=== PATIENT | male | born 1985 | race Caucasian/White ===

== ENCOUNTER 2016-07-29 18:40 | Emergency (ER) | payer OTHER ==
[2016-07-29 18:48] VITALS: BP 140/82; PULSE 100; TEMP 98.2; BMI 22.9
--- NOTE | 2016-07-29 19:16 | PDOC ---
History of Present Illness - General Chief Complaint: Shoulder Dislocation Stated Complaint: INJURY Time Seen by Provider: 07/29/16 19:06 History Source: Patient Exam Limitations: No Limitations - History of Present Illness Initial Comments: 07/29/16 19:28 30-year-old male who is right hand dominant presents to the emergency department complaining of a possible right shoulder dislocation after moving heavy furniture 3 hours ago. Patient states he's had previous right shoulder dislocations that will only reduce via conscious sedation. Patient denies any extremity numbness or tingling sensation. Pain is described as 10/10 sharp constant discomfort. Pain is exacerbated on movement and he has no alleviating factors. Occurred: reports: just prior to arrival Upper Extremity Pain Location: right: shoulder Method of Injury: reports: other (moving furniture) Past History - Past Medical History Allergies/Adverse Reactions: Allergies Allergy/AdvReac Type Severity Reaction Status Date / Time No Known Allergies Allergy Verified 07/29/16 18:48 Home Medications: Ambulatory Orders Ibuprofen [Motrin -] 600 mg PO TID #21 tablet 12/21/14 Oxycodone HCl/Acetaminophen [Percocet 5/325 -] 1 tab PO Q6H #14 tablet 12/21/14 Other medical history: NONE - Psycho/Social/Smoking Cessation Hx Anxiety: No Suicidal Ideation: No Smoking Status: No Smoking History: Never smoked Have you smoked in the past 12 months: No Number of Cigarettes Smoked Daily: 0 Hx Alcohol Use: Yes (SOCIAL) Drug/Substance Use Hx: No Substance Use Type: None Review of Systems - Review of Systems Musculoskeletal: Yes: Other (right shoulder pain) *Physical Exam - Vital Signs Last Vital Signs Temp Pulse Resp BP Pulse Ox 98.2 F 100 H 20 140/82 99 07/29/16 18:45 07/29/16 18:45 07/29/16 18:45 07/29/16 18:45 07/29/16 18:45 - Physical Exam Comments: 07/29/16 19:30 GENERAL: Well developed, well nourished. Awake and alert. No acute distress. HEENT: Normocephalic, atraumatic. PERRLA, EOMI. No conjunctival pallor. Sclera are non- icteric. Moist mucous membranes. Oropharynx is clear. NECK: Supple. Full ROM. No JVD. Carotid pulses 2+ and symmetric, without bruits. No thyromegaly. No lymphadenopathy. CARDIOVASCULAR: Regular rate and rhythm. No murmurs, rubs, or gallops. Distal pulses are 2+ and symmetric. PULMONARY: No evidence of respiratory distress. Lungs clear to auscultation bilaterally. No wheezing, rales or rhonchi. ABDOMINAL: Soft. Non-tender. Non-distended. No rebound or guarding. No organomegaly. Normoactive bowel sounds. MUSCULOSKELETAL Right shoulder: Deformity, pain on palpation/passive and active movement Post reduction of the right shoulder: Deltoid sensation intact, full range of motion Excluding right shoulder: Normal range of motion at all joints. No bony deformities or tenderness. No CVA tenderness. EXTREMITIES: No cyanosis. No clubbing. No edema. No calf tenderness. SKIN: Warm and dry. Normal capillary refill. No rashes. No jaundice. NEUROLOGICAL: Alert, awake, appropriate. Cranial nerves 2-12 intact. No deficits to light touch and temperature in face, upper extremities and lower extremities. No motor deficits in the in face, upper extremities and lower extremities. Normoreflexic in the upper and lower extremities. Normal speech. Toes are down- going bilaterally. Gait is normal without ataxia. PSYCHIATRIC: Cooperative. Good eye contact. Appropriate mood and affect. ED Treatment Course - RADIOLOGY Radiology Studies Ordered: Category Date Time Status SHOULDER-RIGHT [RAD] Stat Radiology 07/29/16 18:54 Taken SHOULDER-RIGHT [RAD] Stat Radiology 07/29/16 19:06 Taken Progress Note - Progress Note Progress Note: Right shoulder: xray taken of the right shoulder. He was only able to obtain AP view due to pain. Patient was placed on prone position in the x-ray department: Scapular manipulation Postreduction x-ray: 2 views: Negative fracture/successfully reduced *DC/Admit/Observation/Transfer Diagnosis at time of Disposition: Recurrent dislocation, right shoulder - Discharge Dispostion Disposition: HOME Condition at time of disposition: Stable Admit: No - Referrals Referrals: Obed Youssef [Primary Care Provider] - - Patient Instructions Printed Discharge Instructions: DI for Shoulder Dislocation Additional Instructions: Ice Rest Follow up with the orthopedics this week as scheduled Return to the ER for severe/persistent or worsening pain, extremity numbness/ tingling sensation
--- NOTE | 2016-07-29 19:20 | PDOC ---
*Physical Exam - Vital Signs Last Vital Signs Temp Pulse Resp BP Pulse Ox 98.2 F 100 H 20 140/82 99 07/29/16 18:45 07/29/16 18:45 07/29/16 18:45 07/29/16 18:45 07/29/16 18:45 Medical Decision Making - Medical Decision Making 07/29/16 19:20 Pt seen by the Advanced Practice Provider under my direct supervision Ancillary studies reviewed I agree with plan as outlined by the Advanced Practice Provider RENARD Degroot *DC/Admit/Observation/Transfer Diagnosis at time of Disposition: Recurrent dislocation, right shoulder - Discharge Dispostion Disposition: HOME Condition at time of disposition: Stable - Referrals Referrals: Obed Youssef [Primary Care Provider] - - Patient Instructions Printed Discharge Instructions: DI for Shoulder Dislocation Additional Instructions: Ice Rest Follow up with the orthopedics this week as scheduled Return to the ER for severe/persistent or worsening pain, extremity numbness/ tingling sensation - Post Discharge Activity
== END 2016-07-29 20:41 | disposition home or self-care (01) ==
LOC: JER 18:40
PROC: 0RSJXZZ Reposition Right Shoulder Joint, External Approach (ICD-10-PCS; principal; 2016-07-29)
DX: M24.411 Recurrent dislocation, right shoulder (principal); X50.0XXA Overexertion from strenuous movement or load, initial encounter; X50.9XXA Other and unspecified overexertion or strenuous movements or postures, initial encounter; Y93.E9 Activity, other interior property and clothing maintenance; Y92.038 Other place in apartment as the place of occurrence of the external cause; Y99.8 Other external cause status
CPT/HCPCS: 23650; 73030-TC-RT; 99281-25

== ENCOUNTER 2016-09-27 12:38 | Emergency (ER) | payer OTHER ==
[2016-09-27 12:47] VITALS: TEMP 98.6; BMI 51.2
--- NOTE | 2016-09-27 12:50 | PDOC ---
History of Present Illness - General Chief Complaint: Pain, Acute Stated Complaint: rt shoulder dislocation INJURY, PAIN Time Seen by Provider: 09/27/16 12:48 - History of Present Illness Initial Comments: 09/27/16 12:52 The patient is a 31 year old male with a significant past medical history of prior shoulder dislocation (R) who presents to the emergency department with R anterior shoulder dislocation. The patient denies chest pain, shortness of breath, headache and dizziness. Denies fever, chills, nausea, vomit, diarrhea and constipation. Denies dysuria, frequency, urgency and hematuria. Allergies: NKA Past surgical history: Denies Social history: Social ETOH 09/27/16 14:33 Past History - Past Medical History Allergies/Adverse Reactions: Allergies Allergy/AdvReac Type Severity Reaction Status Date / Time No Known Allergies Allergy Verified 09/27/16 12:43 Home Medications: Ambulatory Orders Ibuprofen [Motrin -] 600 mg PO TID #21 tablet 12/21/14 Oxycodone HCl/Acetaminophen [Percocet 5/325 -] 1 tab PO Q6H #14 tablet 12/21/14 Ibuprofen [Motrin -] 600 mg PO TID #42 tablet 09/27/16 Other medical history: hx of rt shoulder dislocation - Psycho/Social/Smoking Cessation Hx Anxiety: No Suicidal Ideation: No Smoking Status: No Smoking History: Never smoked Have you smoked in the past 12 months: No Number of Cigarettes Smoked Daily: 0 Information on smoking cessation initiated: No Hx Alcohol Use: No Drug/Substance Use Hx: No Substance Use Type: None Review of Systems - Review of Systems Comments:: 09/27/16 12:52 GENERAL/CONSTITUTIONAL: No fever or chills. No weakness. HEAD, EYES, EARS, NOSE AND THROAT: No change in vision. No ear pain or discharge. No sore throat. CARDIOVASCULAR: No chest pain or shortness of breath RESPIRATORY: No cough, wheezing, or hemoptysis. GASTROINTESTINAL: No nausea, vomiting, diarrhea or constipation. GENITOURINARY: No dysuria, frequency, or change in urination. MUSCULOSKELETAL: Reports Right shoulder pain due to dislocation. No neck or back pain. SKIN: No rash NEUROLOGIC: No headache, vertigo, loss of consciousness, or change in strength/ sensation. ENDOCRINE: No increased thirst. No abnormal weight change HEMATOLOGIC/LYMPHATIC: No anemia, easy bleeding, or history of blood clots. ALLERGIC/IMMUNOLOGIC: No hives or skin allergy. 09/27/16 14:34 *Physical Exam - Vital Signs Last Vital Signs Temp Pulse Resp BP Pulse Ox 98.6 F 98 H 18 138/83 100 09/27/16 12:45 09/27/16 12:45 09/27/16 12:45 09/27/16 12:45 09/27/16 12:45 - Physical Exam Comments: 09/27/16 12:52 GENERAL: Awake, alert, and fully oriented, in no acute distress HEAD: No signs of trauma, normocephalic, atraumatic EYES: PERRLA, EOMI, sclera anicteric, conjunctiva clear ENT: Auricles normal inspection, hearing grossly normal, nares patent, oropharynx clear without exudates. Moist mucosa NECK: Normal ROM, supple, no lymphadenopathy, JVD, or masses LUNGS: No distress, speaks full sentences, clear to auscultation bilaterally HEART: Regular rate and rhythm, normal S1 and S2, no murmurs, rubs or gallops, peripheral pulses normal and equal bilaterally. ABDOMEN: Soft, nontender, normoactive bowel sounds. No guarding, no rebound. No masses EXTREMITIES: +R anterior dislocation of shoulder with pain with movement, no edema. No clubbing or cyanosis. NEUROLOGICAL: Cranial nerves II through XII grossly intact. Normal speech, normal gait, no focal sensorimotor deficits SKIN: Warm, Dry, normal turgor, no rashes or lesions noted. 09/27/16 14:35 Medical Decision Making - Medical Decision Making 09/27/16 14:36 Patient presented to ER with visibly deformed shoulder. Dislocation confirmed with X-ray. Shoulder reduced under sedation with Etomidate (20). Follow-up x-ray confirmed proper placement. Discharged to home care. 09/27/16 15:01 *DC/Admit/Observation/Transfer Diagnosis at time of Disposition: Recurrent dislocation, right shoulder Shoulder dislocation, recurrent Qualifiers: Laterality: right Qualified Code(s): M24.411 - Recurrent dislocation, right shoulder - Prescriptions Prescriptions: Ibuprofen [Motrin -] 600 mg PO TID #42 tablet - Referrals Referrals: Balta Siddiqui MD [Staff Physician] - - Attestations Physician Attestion: 09/27/16 14:36 I, Dr. Jericho Newby, attest that this document has been prepared under my direction and personally reviewed by me in its entirety. I further attest, that it accurately reflects all work, treatment, procedures and medical decision -making performed by me.
--- NOTE | 2016-09-27 12:54 | PDOC ---
History of Present Illness <KvngJasmeet - Last Filed: 09/27/16 12:49> - General History Source: Patient Exam Limitations: No Limitations - History of Present Illness Initial Comments: The patient is a 31 yo M with a PMHx of shoulder dislocations who presents with R shoulder pain since earlier today. Patient states he was putting a bag into the back seat of his car and felt R shoulder pain. Patient states hes had approximately 10 previous shoulder dislocations. Patient states that hes been advised to receive surgery but has been reluctant to. 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 <CecilyConcetta - Last Filed: 09/27/16 14:36> - General Chief Complaint: Pain, Acute Stated Complaint: rt shoulder dislocation INJURY, PAIN Time Seen by Provider: 09/27/16 12:48 Past History - Past Medical History Other medical history: hx of rt shoulder dislocation - Psycho/Social/Smoking Cessation Hx Anxiety: No Suicidal Ideation: No Smoking Status: No Smoking History: Never smoked Have you smoked in the past 12 months: No Number of Cigarettes Smoked Daily: 0 Information on smoking cessation initiated: No Hx Alcohol Use: No Drug/Substance Use Hx: No Substance Use Type: None <KvngJasmeet - Last Filed: 09/27/16 12:49> <Concetta Tony - Last Filed: 09/27/16 14:36> - Past Medical History Allergies/Adverse Reactions: Allergies Allergy/AdvReac Type Severity Reaction Status Date / Time No Known Allergies Allergy Verified 09/27/16 12:43 Home Medications: Ambulatory Orders Ibuprofen [Motrin -] 600 mg PO TID #21 tablet 12/21/14 Oxycodone HCl/Acetaminophen [Percocet 5/325 -] 1 tab PO Q6H #14 tablet 12/21/14 Ibuprofen [Motrin -] 600 mg PO TID #42 tablet 09/27/16 Review of Systems - Review of Systems Able to Perform ROS?: Yes Comments:: GENERAL/CONSTITUTIONAL: No fever or chills. No weakness. HEAD, EYES, EARS, NOSE AND THROAT: No change in vision. No ear pain or discharge. No sore throat. CARDIOVASCULAR: No chest pain or shortness of breath. RESPIRATORY: No cough, wheezing, or hemoptysis. GASTROINTESTINAL: No nausea, vomiting, diarrhea or constipation. GENITOURINARY: No dysuria, frequency, or change in urination. MUSCULOSKELETAL: R shoulder pain. No neck or back pain. SKIN: No rash NEUROLOGIC: No headache, vertigo, loss of consciousness, or change in strength/ sensation. ENDOCRINE: No increased thirst. No abnormal weight change. HEMATOLOGIC/LYMPHATIC: No anemia, easy bleeding, or history of blood clots. ALLERGIC/IMMUNOLOGIC: No hives or skin allergy. <Concetta Tony - Last Filed: 09/27/16 14:36> *Physical Exam - Vital Signs Last Vital Signs Temp Pulse Resp BP Pulse Ox 98.6 F 98 H 18 138/83 100 09/27/16 12:45 09/27/16 12:45 09/27/16 12:45 09/27/16 12:45 09/27/16 12:45 <Jasmeet Calderon - Last Filed: 09/27/16 12:49> - Vital Signs Last Vital Signs Temp Pulse Resp BP Pulse Ox 98.6 F 68 20 120/69 97 09/27/16 12:45 09/27/16 14:16 09/27/16 14:16 09/27/16 14:16 09/27/16 14:16 - Physical Exam Comments: GENERAL: Awake, alert, and fully oriented, in no acute distress HEAD: No signs of trauma EYES: PERRLA, EOMI, sclera anicteric, conjunctiva clear ENT: Auricles normal inspection, hearing grossly normal, nares patent, oropharynx clear without exudates. Moist mucosa NECK: Normal ROM, supple, no lymphadenopathy, JVD, or masses LUNGS: Breath sounds equal, clear to auscultation bilaterally. No wheezes, and no crackles HEART: Regular rate and rhythm, normal S1 and S2, no murmurs, rubs or gallops ABDOMEN: Soft, nontender, normoactive bowel sounds. No guarding, no rebound. No masses EXTREMITIES: Obvious deformity in R shoulder with painful ROM. Limited ROM in R extremity, neurovascularly intact. No edema. No clubbing or cyanosis. No cords, erythema, or tenderness NEUROLOGICAL: Cranial nerves II through XII grossly intact. Normal speech, normal gait SKIN: Warm, Dry, normal turgor, no rashes or lesions noted. <Concetta Tony - Last Filed: 09/27/16 14:36> ED Treatment Course - RADIOLOGY Radiology Studies Ordered: Category Date Time Status SHOULDER-RIGHT [RAD] Stat Radiology 09/27/16 12:47 Ordered <Jasmeet Calderon - Last Filed: 09/27/16 12:49> - RADIOLOGY Radiograph Interpretation: Right Shoulder X-Ray: Impression: Anterior dislocation of right humeral head. Hill-Sachs deformity of humeral head. - Medications Given in the ED: ED Medications Discontinued Medications Generic Name Dose Route Start Last Admin Trade Name Freq PRN Reason Stop Dose Admin Etomidate 49 mg 09/27/16 12:59 09/27/16 13:13 Amidate - IVPUSH 09/27/16 13:00 Not Given ONCE ONE Etomidate 20 mg 09/27/16 13:14 09/27/16 14:02 Amidate - IVPUSH 09/27/16 13:15 20 mg ONCE ONE Administration <Concetta Tony - Last Filed: 09/27/16 14:36> Medical Decision Making - Medical Decision Making Right shoulder dislocation -reset shoulder -immobilize -will reassess Will advise patient to see an orthopedic surgeon as out patient. <Concetta Tony - Last Filed: 09/27/16 14:36> *DC/Admit/Observation/Transfer <Jasmeet Calderon - Last Filed: 09/27/16 12:49> - Attestations Scribe Attestion: Documentation prepared by Concetta Tony, acting as medical physicist for Jasmeet Calderon MD/DO. <Concetta Tony - Last Filed: 09/27/16 14:36> - Prescriptions Prescriptions: Ibuprofen [Motrin -] 600 mg PO TID #42 tablet
[2016-09-27] MEDS ORDERED: ETOMIDATE 40 MG/20 ML VIAL IVPUSH ONE ×2 (12:59→13:14)
[2016-09-27] MEDS ORDERED: ETOMIDATE 20 MG/10 ML AMPUL IVPUSH ONE (13:20)
[2016-09-27] MEDS ORDERED: ONDANSETRON 4 MG/2 ML VIAL ONE (13:49)
[2016-09-27 15:16] VITALS: BP 129/91; PULSE 72
== END 2016-09-27 15:13 | disposition home or self-care (01) ==
LOC: JER 12:38
PROC: 0RSJXZZ Reposition Right Shoulder Joint, External Approach (ICD-10-PCS; principal; 2016-09-27)
DX: M24.411 Recurrent dislocation, right shoulder (principal); X50.0XXA Overexertion from strenuous movement or load, initial encounter; X50.9XXA Other and unspecified overexertion or strenuous movements or postures, initial encounter; Y93.89 Activity, other specified; Y92.89 Other specified places as the place of occurrence of the external cause
CPT/HCPCS: 23650; 73030-TC-RT; 99282-25

== ENCOUNTER 2016-10-22 07:42 | Day surgery (SDC) | payer OTHER ==
[2016-10-19 14:18] VITALS: BMI 23.0
[~2016-10-22 07:42] MED LIST: MIDAZOLAM HCL 2 MG/2 ML SINGLE DOSE VIAL ONE; PROPOFOL 20 ML ONE
[2016-10-22] MEDS ORDERED: MIDAZOLAM HCL 2 MG/2 ML SINGLE DOSE VIAL ONE ×3 (07:45→11:12)
[2016-10-22] MEDS ORDERED: ROPIVACAINE HCL 0.5% 30ML VIAL ONE (07:45)
[2016-10-22] MEDS ORDERED: DEXAMETHASONE SOD PHOSPHATE/PF 10 MG/ML SDV ONE (07:52)
[2016-10-22] MEDS ORDERED: SUCCINYLCHOLINE CHLORIDE 200 MG/10 ML VIAL ONE (07:55)
[2016-10-22] MEDS ORDERED: ePHEDrine SULFATE 50 MG/1 ML AMPULE ONE (07:56)
[2016-10-22] MEDS ORDERED: PROPOFOL 20 ML ONE ×4 (09:03→10:41)
[2016-10-22] MEDS ORDERED: TRANEXAMIC ACID 1000 MG/10 ML VIAL ONE (09:30)
[2016-10-22] MEDS ORDERED: LIDOCAINE HCL/PF 2% SDV 5ML VIAL ONE (10:16)
[2016-10-22] MEDS ORDERED: EPINEPHrine 1:1,000 1 MG/1 ML - 30ML VIAL (INJECTION) ONE (10:25)
[2016-10-22] MEDS ORDERED: oxyCODONE HCL 5 MG TABLET PO PRN ×2 (10:52)
[2016-10-22] MEDS ORDERED: ONDANSETRON 4 MG/2 ML VIAL IVPUSH PRN (10:52)
[2016-10-22] MEDS ORDERED: DEXAMETHASONE SOD PHOSPHATE 4 MG/1 ML VIAL ONE (10:56)
[2016-10-22] MEDS ORDERED: LACTATED RINGERS SOLUTION 1,000 ML IV SCH (11:00)
--- NOTE | 2016-10-22 12:02 | OP ---
DATE OF OPERATION: 10/22/2016 PREOPERATIVE DIAGNOSIS: Right shoulder recurrent instability. POSTOPERATIVE DIAGNOSIS: Right shoulder recurrent instability, superior labral tear, anterior inferior labral tear, partial-thickness rotator cuff tear, extensive synovitis. PROCEDURE: Right shoulder arthroplasty, superior labrum anterior to posterior repair, Bankart repair, debridement of extensive synovitis and partial-thickness rotator cuff tear. SURGEON: Dion Miguel MD HELICOPTER REPAIRER: RENARD Duran whose skilled full assistance was necessary for the safe and timely performance of this procedure. Ms. Haro was able to assist in limb positioning, driving the camera, suture passing, insertion of fixation hardware. ANESTHESIA: Regional plus sedation. POSTOPERATIVE CONDITION: Stable. COMPLICATIONS: None. IMPLANTS: Arthrex PushLock anchors 2.9 mm x5. INDICATIONS: This is a pleasant gentleman who suffered what he reports as 10 dislocations. MRI confirmed presence of anterior inferior labral tear, Hill-Sachs lesion, partial-thickness rotator cuff tearing. Treatment options including nonoperative management with high risk of recurrent dislocation versus operative management and stabilization were discussed. Operative risks were discussed in detail including bleeding, infection, neurovascular injury, need for further surgery, postoperative pain and stiffness, recurrent dislocation. We discussed medical risks such as heart attack, stroke, DVT, PE, and . We discussed that given the amount of damage that he has already done to the shoulder, there is a good chance of going on to get arthritis in the future regardless of what treatment option is chosen. We discussed the extensive rehabilitation from the procedure and postoperative activity limitations. The patient voiced understanding and agreement with the plan. He elected to proceed. DESCRIPTION OF PROCEDURE: The patient was brought to the operating room after administration of regional block in the preoperative holding area. The right upper extremity was examined now demonstrating anterior instability. There was no stewart posterior instability. There was no sulcus sign. There was no limitation range of motion. The right upper extremity was then prepped and draped in the usual sterile fashion. A preoperative dose of antibiotics was given, and the usual time-out procedure was performed. The bony landmarks were now marked out. The standard posterolateral arthroscopic portal was now established, and the arthroscope was passed into the glenohumeral joint. Examination of the glenohumeral joint initially showed significant, diffuse synovitis about the joint. Passing in the biceps anchor demonstrated that there was some fraying about the superior labrum, which was mild in nature. The biceps itself was located. The arthroscope was normal passed inferiorly along the anterior rim of the glenoid demonstrating a labral tear extending from approximately the 2 o'clock position down to the 5:30 position. The posterior labrum was examined demonstrating some fraying but no stewart tearing. Passing the arthroscope back into the middle of the joint, the subscapularis was now inspected, and this was found to be unremarkable. The arthroscope was now passed more superiorly here. After establishment of an anterior inferior portal, the biceps was brought out through the joint and did demonstrate some injected blood vessels; however, there was no stewart tearing the biceps seen. The arthroscope was now passed to the rotator cuff anterior border. The supraspinatus was noted to have partial-thickness tearing throughout its insertion. It was approximately 3-5 mm of tearing depth likely representing less than 50% of the rotator cuff. A 4.5 shaver was used to debride this. The infraspinatus appeared intact with only some small partial tearing as well. Moving along more posteriorly, there was a significant Hill-Sachs lesion noted on the posterior aspect of the humeral head. The arm was passed into a position of extreme abduction and external rotation. There was no engaging noted of the Hill-Sachs lesion; therefore, it was felt that this did not need to be addressed at the time of this procedure. The limb was then passed back into a neutral position. Some of the synovitis was debrided using a combination of the shaver as well as the RF probe. This was done on the undersurface of the rotator cuff. as well as anteriorly and posteriorly within the joint. Attention was now turned to the anterior aspect of the glenoid. It should be noted that it was apparent that there was bone loss present on the anterior inferior portion of the glenoid. This was felt to approximate 5%-10%. The anterior aspect of the glenoid was visualized, and an elevator was used to free up the surrounding capsule and labral tissue extending down along the anterior and inferior glenoid neck. Care was taken to the bone with the elevator at all times. Having satisfactorily freed up this tissue, the 90-degree suture passer was used to place sutures both using a suture tape as well as a No. 2 FiberWire FiberStick suture. Most inferiorly, the FiberStick was placed. The most inferior suture was now loaded into an anterior inferior portal. Anterior superior portal had been established to allow for parking of the other sutures. The sutures were retrieved on the anterior inferior portal, loaded onto a suture anchor. The drill was now passed into the joint. At the 5 o'clock position, a drill hole was made then an anchor was fixed down to secure the anterior portion of the labrum. This was repeated extending up along the labrum up until the 3 o'clock position. A probe was now used to examine the superior rim. This was also seen to be torn and unstable. The shaver was used to debride the superior aspect off and on the glenoid neck. It should be noted that the shaver had been used also to debride the anterior and the inferior aspect of the glenoid neck following use of the elevator. The decision was now made to repair the anterior portion of the superior labrum to help stabilize this as well. A FiberStick was placed through the anterior aspect of the superior labrum and retrieved out through the portal. A last suture tack anchor was passed here securing the anterior aspect of the superior labrum. Probing of the superior labrum demonstrating the biceps anchor was now stable; therefore, no anchor was placed in the posterior aspect to avoid overconstraining the shoulder. The repair was now inspected, and the drive through test, which had been performed earlier, was now negative. It had been positive prior to fixation. The camera was now withdrawn from the glenohumeral joint. We passed the camera into the subacromial space. Examination of the subacromial space demonstrated smooth bursa with no evidence of bursitis. The rotator cuff insertion appeared unremarkable; therefore, there no subacromial decompression or rotator cuff debridement was performed on this side. At this point, all of the excess fluid was withdrawn from the joint. The portal was sutured using 2-0 Vicryl as well as 4-0 nylon. Sterile dressings were placed. The patient was placed in a sling. He was transferred to the recovery room in stable condition. Darin [id number]
[2016-10-22] MEDS ORDERED: MIDAZOLAM HCL 2 MG/2 ML SINGLE DOSE VIAL IVPUSH ONE (12:25)
[2016-10-22 13:33] VITALS: BP 135/77; PULSE 104; TEMP 98
== END 2016-10-22 13:50 | disposition home or self-care (01) ==
LOC: FASU 07:42
PROVIDERS: ATTEND Orthopaedic Surgery Sports Medicine
PROC: 0LB14ZZ Excision of Right Shoulder Tendon, Percutaneous Endoscopic Approach (ICD-10-PCS; 2016-10-22)
PROC: 0RBJ4ZZ Excision of Right Shoulder Joint, Percutaneous Endoscopic Approach (ICD-10-PCS; 2016-10-22)
PROC: 0MM14ZZ Reattachment of Right Shoulder Bursa and Ligament, Percutaneous Endoscopic Approach (ICD-10-PCS; 2016-10-22)
PROC: 0RQJ4ZZ Repair Right Shoulder Joint, Percutaneous Endoscopic Approach (ICD-10-PCS; principal; 2016-10-22 09:05)
DX: M24.411 Recurrent dislocation, right shoulder (principal); S43.431A Superior glenoid labrum lesion of right shoulder, initial encounter; X58.XXXA Exposure to other specified factors, initial encounter; Y93.9 Activity, unspecified; Y92.9 Unspecified place or not applicable; M75.111 Incomplete rotator cuff tear or rupture of right shoulder, not specified as traumatic; M65.811 Other synovitis and tenosynovitis, right shoulder
CPT/HCPCS: 94760

== ENCOUNTER 2018-01-15 00:52 | Emergency (ER) | payer OTHER ==
[2018-01-15 01:07] VITALS: BP 122/74; PULSE 77; TEMP 98; BMI 23.7
--- NOTE | 2018-01-15 01:22 | PDOC ---
History of Present Illness - General Chief Complaint: Ear Problem Stated Complaint: EARACHE,LT EAR Time Seen by Provider: 01/15/18 01:07 History Source: Patient Exam Limitations: No Limitations - History of Present Illness Initial Comments: 01/15/18 01:25 32-year-old male with no medical history presents to the ER complaining of pain to the left ear 3 days without fever, chills, nausea/vomiting, headache, dizziness, lightheadedness, facial pain, rhinorrhea, nasal congestion, sore throat, neck pain/stiffness, chest congestion, chest pain, shortness of breath. Patient states he's been taken Tylenol alternating with Motrin which alleviates the pain. There are no alleviating factors. Patient denies difficulty hearing. Past History - Past Medical History Allergies/Adverse Reactions: Allergies Allergy/AdvReac Type Severity Reaction Status Date / Time No Known Allergies Allergy Verified 01/15/18 00:58 Home Medications: Ambulatory Orders Folic Acid/Multivit,Iron,Fanwood [Centrum Chewable Tablet] 1 each PO DAILY Ibuprofen [Motrin -] 400 mg PO QID PRN 10/19/16 Anemia: No Asthma: No Cancer: No Cardiac Disorders: No CVA: No COPD: No CHF: No Dementia: No Diabetes: No GI Disorders: No Disorders: No HTN: No Hypercholesterolemia: No Liver Disease: No Seizures: No Thyroid Disease: No - Suicide/Smoking/Psychosocial Hx Smoking Status: No Smoking History: Never smoked Have you smoked in the past 12 months: No Number of Cigarettes Smoked Daily: 0 If you are a former smoker, when did you quit?: 8 YEARS AGO Information on smoking cessation initiated: No Hx Alcohol Use: Yes (OCCASIONALLY) Drug/Substance Use Hx: No Substance Use Type: Alcohol Hx Substance Use Treatment: No Review of Systems - Review of Systems Able to Perform ROS?: Yes Comments:: 01/15/18 01:23 CONSTITUTIONAL: Absent: fever, chills, diaphoresis, generalized weakness, malaise, loss of appetite HEENT: +left earache x3d Absent: rhinorrhea, nasal congestion, throat pain, throat swelling, difficulty swallowing, mouth swelling, , eye pain, visual Changes SKIN: Absent: rash, itching, pallor Is the patient limited Syriac proficient: No *Physical Exam - Vital Signs Last Vital Signs Temp Pulse Resp BP Pulse Ox 98.0 F 77 18 122/74 100 01/15/18 00:57 01/15/18 00:57 01/15/18 00:57 01/15/18 00:57 01/15/18 00:57 - Physical Exam Comments: 01/15/18 01:23 GENERAL: Well developed, well nourished. Awake and alert. No acute distress. HEENT: B/L ears: neg pain on auricular movement TM: clear/neg FB/erythema/swelling Normocephalic, atraumatic. PERRLA, EOMI. No conjunctival pallor. Sclera are non- icteric. Moist mucous membranes. Oropharynx is clear. NECK: Supple. Full ROM. No JVD. Carotid pulses 2+ and symmetric, without bruits. No thyromegaly. No lymphadenopathy. SKIN: Warm and dry. Normal capillary refill. No rashes. No jaundice. *DC/Admit/Observation/Transfer Diagnosis at time of Disposition: Earache, left - Discharge Dispostion Disposition: HOME Condition at time of disposition: Stable Decision to Admit order: No - Referrals Referrals: William Hampton MD [Primary Care Provider] - Zaire Reddy MD [Staff Physician] - - Patient Instructions Printed Discharge Instructions: DI for Ear Pain-Adult Additional Instructions: Follow-up with the ENT surgeon: Dr. Reddy: [phone] Take Tylenol alternating with Motrin every 6 hours as needed for pain Return back to the ER for severe/persistent or worsening symptoms - Post Discharge Activity
== END 2018-01-15 01:44 | disposition home or self-care (01) ==
LOC: JER 00:52
DX: H92.02 Otalgia, left ear (principal)
CPT/HCPCS: 99282-25

== ENCOUNTER 2018-04-09 08:45 | Emergency (ER) | payer OTHER ==
[2018-04-09 08:57] VITALS: BP 129/58; PULSE 125; TEMP 100.2; BMI 23.7
--- NOTE | 2018-04-09 09:30 | PDOC ---
History of Present Illness - General Chief Complaint: Cold Symptoms Stated Complaint: Cold Symptoms Time Seen by Provider: 04/09/18 09:24 History Source: Patient Exam Limitations: No Limitations - History of Present Illness Initial Comments: 04/09/18 09:52 Came to the emergency Department with complaints of cough, fevers, body aches and sore throat pain 2 days. Severity: reports: mild, moderate Associated Symptoms: reports: cough, fever/chills, nasal congestion, nasal drainage Past History - Travel Traveled outside of the country in the last 30 days: No Close contact w/someone who was outside of country & ill: No - Past Medical History Allergies/Adverse Reactions: Allergies Allergy/AdvReac Type Severity Reaction Status Date / Time No Known Allergies Allergy Verified 04/09/18 08:53 Home Medications: Ambulatory Orders Oseltamivir Phosphate [Tamiflu -] 75 mg PO BID #10 capsule 04/09/18 Anemia: No Asthma: No Cancer: No Cardiac Disorders: No CVA: No COPD: No CHF: No Dementia: No Diabetes: No GI Disorders: No Disorders: No HTN: No Hypercholesterolemia: No Liver Disease: No Seizures: No Thyroid Disease: No - Immunization History Immunization Up to Date: Yes - Suicide/Smoking/Psychosocial Hx Smoking Status: No Smoking History: Never smoked Have you smoked in the past 12 months: No Number of Cigarettes Smoked Daily: 0 If you are a former smoker, when did you quit?: 8 YEARS AGO Information on smoking cessation initiated: No Hx Alcohol Use: No Drug/Substance Use Hx: Yes (MARIJUANA) Substance Use Type: Alcohol Hx Substance Use Treatment: No Review of Systems - Review of Systems Able to Perform ROS?: Yes Is the patient limited Uzbek proficient: Yes Constitutional: Yes: Symptoms Reported, See HPI, Chills, Fever, Malaise HEENTM: Yes: See HPI. No: Symptoms Reported Respiratory: Yes: Symptoms reported, See HPI, Cough, Wheezing ABD/GI: Yes: Symptoms Reported Musculoskeletal: Yes: Symptoms Reported Integumentary: No: Symptoms Reported All Other Systems: Reviewed and Negative *Physical Exam - Vital Signs Last Vital Signs Temp Pulse Resp BP Pulse Ox 100.2 F H 125 H 16 129/58 L 96 04/09/18 08:53 04/09/18 08:53 04/09/18 08:53 04/09/18 08:53 04/09/18 08:53 - Physical Exam Comments: 04/09/18 11:55 GENERAL: [The child is awake, alert, and appropriately interactive.] EYES: [The pupils are equal, round, and reactive to light, with clear, conjunctiva.but glassy] NOSE: [The nose with clear drainage EARS: [The ear canals and tympanic membranes are congested but landmarks easily visualed ] THROAT: [The oropharynx is clear with erythema, no exudates. The mucous membranes are moist.] NECK: [The neck is supple with mildly tender adenopathy, no menigemous] CHEST: [The lungs are coarse but clear without crackles, or wheezes.] HEART: [Heart is regular rhythm, with normal S1 and S2, no murmurs.] ABDOMEN: [The abdomen is soft and nontender with normal bowel sounds. There is no organomegaly and no mass. There is no guarding or rebound.] EXTREMITIES: [Extremities are normal.] NEURO: [Behavior is normal for age.cranky but easily,m Tone is normal.] SKIN: [Skin is unremarkable without rash or swelling. There is no bruising, and there are no other signs of injury.] General Appearance: Yes: Appropriately Dressed, Apparent Distress Moderate Sedation - Procedure Monitoring Vital Signs: Procedure Monitoring Vital Signs Temperature 100.2 F H 04/09/18 08:53 Pulse Rate 125 H 04/09/18 08:53 Respiratory Rate 16 04/09/18 08:53 Blood Pressure 129/58 L 04/09/18 08:53 O2 Sat by Pulse Oximetry (%) 96 04/09/18 08:53 Progress Note - Progress Note Progress Note: Upper respiratory infection, probable influenza. We'll treat with Tamiflu *DC/Admit/Observation/Transfer Diagnosis at time of Disposition: Influenzal acute upper respiratory infection - Discharge Dispostion Disposition: HOME Condition at time of disposition: Stable Decision to Admit order: No - Prescriptions Prescriptions: Oseltamivir Phosphate [Tamiflu -] 75 mg PO BID #10 capsule - Referrals Referrals: William Hampton MD [Primary Care Provider] - - Patient Instructions Printed Discharge Instructions: Influenza Additional Instructions: Rest, drink lots of fluids: Teas, water, soups, Pedialyte Saltwater gargles Steamy showers/seem to face break up mucus Old-fashioned treatments help! Avoid contact with others until fevers and cough resolved as this is very contagious Lots of handwashing and good hygiene Continue [id number] medications for symptomatic relief Tylenol or Motrin for fever and pain Take all of Tamiflu as directed: 1 tab every 12 hours for 5 days Followup with private physician in one to 2 days as needed or if worsening Return to emergency department for worsened symptoms, fevers, dehydration Influenza takes between 5 and 7 days for resolution To not participate in any activity, work, or school until fevers and cough are gone for at least one day - Post Discharge Activity Forms/Work/School Notes: Back to Work
== END 2018-04-09 09:37 | disposition home or self-care (01) ==
LOC: JERFT 08:45
DX: J11.1 Influenza due to unidentified influenza virus with other respiratory manifestations (principal)
CPT/HCPCS: 99281-25

== ENCOUNTER 2018-10-20 05:59 | Day surgery (SDC) | payer OTHER ==
[2018-10-19 17:09] VITALS: BMI 22.6
[2018-10-20] MEDS ORDERED: ROPIVACAINE HCL 0.5% 30ML VIAL ONE (07:15)
[2018-10-20] MEDS ORDERED: MIDAZOLAM HCL 2 MG/2 ML SINGLE DOSE VIAL ONE ×3 (07:15→11:59)
--- NOTE | 2018-10-20 07:45 | OP ---
Operative Note - Note: Operative Date: 10/20/18 Pre-Operative Diagnosis: Shoulder instability Operation: Shoulder stabilization with Glenojet implantation Implants: 3.5mm cortical screws x2, Mitek Healix anchors x2 Post-Operative Diagnosis: Same as Pre-op Surgeon: Dion Miguel Anesthesia: General Operative Report Dictated: Yes
[2018-10-20] MEDS ORDERED: PROPOFOL 20 ML ONE ×6 (07:58→11:44)
[2018-10-20] MEDS ORDERED: SUCCINYLCHOLINE CHLORIDE 200 MG/10 ML SYRINGE ONE (07:58)
[2018-10-20] MEDS ORDERED: GLYCOPYRROLATE 0.2 MG/1 ML VIAL ONE ×2 (08:07→08:16)
[2018-10-20] MEDS ORDERED: KETOROLAC TROMETHAMINE 30 MG/1 ML VIAL ONE (08:16)
[2018-10-20] MEDS ORDERED: ONDANSETRON 4 MG/2 ML VIAL ONE (08:16)
[2018-10-20] MEDS ORDERED: DEXAMETHASONE SOD PHOSPHATE 4 MG/1 ML VIAL ONE (08:16)
[2018-10-20] MEDS ORDERED: ceFAZolin SODIUM 1 GM VIAL ONE ×2 (08:16→11:50)
[2018-10-20] MEDS ORDERED: LIDOCAINE 1%/EPI 1:100000 (20 ML MULTI DOSE VIAL) ONE (09:18)
[2018-10-20] MEDS ORDERED: TRANEXAMIC ACID 1000 MG/10 ML VIAL ONE (09:24)
[2018-10-20] MEDS ORDERED: LIDOCAINE 1%/EPI 1:100000 (20 ML MULTI DOSE VIAL) IJ ONE (09:50)
[2018-10-20] MEDS ORDERED: PROMETHAZINE HCL 25 MG/1 ML VIAL IVPUSH PRN (13:32)
[2018-10-20] MEDS ORDERED: ONDANSETRON 4 MG/2 ML VIAL IVPUSH PRN (13:32)
[2018-10-20 15:01] VITALS: TEMP 98
[2018-10-20 15:54] VITALS: BP 119/75; PULSE 66
--- NOTE | 2018-10-20 17:50 | OP ---
DATE OF OPERATION: 10/20/2018 PREOPERATIVE DIAGNOSIS: Conjoined tendon instability. POSTOPERATIVE DIAGNOSIS: Conjoined tendon instability. PROCEDURE: Right shoulder arthroscopy, procedure, open bone block stabilization anteriorly. SURGEON: Dion Miguel MD HADOOP ENGINEER: RENARD Kraft, whose skillful assistance was necessary for the safe and timely performance of this procedure. Ms Fernandes was able to provide limb positioning, retraction, assistance driving the camera, assisting in the insertion of orthopedic implants. ANESTHESIA: Regional. POSTOPERATIVE CONDITION: Stable. COMPLICATIONS: None. IMPLANTS: distal tibia x1, 3.5-mm cortical screws x2, Mitek HEALIX Anchors x2. INDICATIONS: This is a pleasant 33-year-old gentleman who had previously underwent soft tissue shoulder stabilization. Approximately a year after, he started having instability symptoms again. He delayed treatment for about 1-2 years and then returned. He continued to feel like the shoulder would pop out of place with any type of reaching motion. He was unable to lift anything more than a few pounds. He was found to have significant bone loss on the glenoid as well as a significant humeral head Hill-Sachs lesion. Treatment options were discussed, including nonoperative versus operative measures. Operative management was reviewed in detail. Operative risks were reviewed including bleeding, infection, neurovascular injury, need for further surgery, postoperative discomfort, and osteoarthritis. We discussed that this is a "nonanatomic" operation where we are trying to use a graft to restore the shape of the shoulder socket but cannot make it perfect again and also cannot totally restore the cartilage surface. We discussed medical risks such as heart attack, stroke, DVT, PE, and . We discussed the use of perioperative antibiotic and DVT prophylaxis. We reviewed the postoperative rehabilitation protocol. I addressed all the patient's questions and concerns. He voiced understanding and elected to proceed. DESCRIPTION OF PROCEDURE: The patient was brought to the operating room after administration of a regional block in the preoperative holding area. The patient was placed in the beach chair position while awake, careful to pad all the bony prominences and maintain neutral positioning of the cervical spine. The right upper extremity was then prepped and draped in the usual sterile fashion. A preoperative dose of antibiotics was given, and the usual timeout procedure was performed. The shoulder was examined, demonstrating grossly positive anterior load and shift. He had 1+ sulcus sign. Negative posterior load and shift. Patient was then marked of the bony landmarks. Standard posterior viewing portal was now established. The arthroscope was passed into the glenohumeral joint. Examination of the articular surface demonstrated a significant anterior bone loss. The remaining cartilage appeared with only mild superficial wear. There was a sharp drop off on the anterior labrum and no remaining soft tissue attachment. There were several torn sutures noted anteriorly. Examining the humeral head demonstrated a large Hill-Sachs lesion, which was easily able to be brought into contact with the glenoid, consisting of an engaging lesion. The subscapularis was unremarkable. The biceps appeared copasetic. The undersurface of the supraspinatus and infraspinatus appeared mildly worn but without stewart tearing. At this point, an accessory posterolateral portal was established, and the cannula was inserted. Utilizing a shaver as well as a rasp, the Hill-Sachs was debrided down to bleeding bone. A punch/tap was then inserted in the inferior portion of the defect, and then the HEALIX anchor was inserted. A second one was inserted more superficially. Sutures from both anchors were maintained in the cannula which was in the subacromial space. The 2 suture limbs were then tied together in shayna fashion, creating a bridge to secure the rotator cuff into the Hill-Sachs defect. The sutures were tied, and the rotator cuff was sitting well within the Hill-Sachs lesion. The fluid was now withdrawn from the joint. The shoulder was now reprepped. Ioban was placed over the shoulder as well. A deltopectoral incision was now planned out. This was carried out through the skin and subcutaneous tissue. Electrocautery was used to maintain hemostasis. The fascia over the deltopectoral interval was identified, and blunt spreading was used to expose the cephalic vein, which was tracked laterally. Finger dissection was then used to open up the deltopectoral interval. A self retainer was then placed onto the conjoined tendon and the deltoid. Blunt spreading was carried along the medial aspect of the conjoined tendon to expose the tissue over the subscapularis. The subscapularis was then split in line with its fibers initially using electrocautery followed by Metzenbaum scissors. The plane between the subscapularis and capsule was identified. A Gelpi retractor was placed into the subscapularis to retract it both superiorly and inferiorly. The capsule was then elevated off the glenoid neck, and an L-shaped capsulotomy was made to bring a flap down to expose the glenoid. After exposing the glenoid, it was noted significant bony and soft callus over the anterior glenoid neck. Utilizing a periosteal elevator as well as a rongeur, this was debrided down to the cancellous bone of the glenoid. Initially, the guide from the allograft system was used to insert 2 K-wires into the glenoid. However, these K-wires were felt to be improperly positioned at the wrong angle, and therefore, they were removed. The graft template was then inserted, and the 2 K-wires were reinserted into a more satisfactory position. The trial graft was then removed. K-wire position was verified and was satisfactory. The true graft was then inserted over the K-wires. The superior K-wire was now removed, and the 3.5 screw was measured and then inserted. However, this resulted in the graft sitting at an improper angle relative to the intact glenoid. This screw was then removed. The K-wires were repositioned one more time. The same problem occurred again. Decision was now made to insert the superior screw to hold the graft somewhat in place. The inferior K-wire was then repositioned to obtain a better angle. Screw was now inserted, which was able to better reduce the graft to the glenoid. The superior screw was then removed with the K-wire and then a screw was reinserted to again obtain better fixation obtaining a congruent surface to the glenoid and securing the graft in place. Prior to inserting the screws, SutureTape sutures had been tied around the head portion. After securing the graft in and finding satisfactory position, the capsule was imbricated over the graft utilizing the previously placed SutureTape sutures in horizontal mattress fashion. The wound was copiously irrigated prior to capsular closure utilizing pulse irrigation with antibiotic solution. The subscapularis was then repaired using No. 2 FiberWire suture. Given the laxity in the capsule, the rotator interval was imbricated as well also using No. 2 FiberWire. The deltopectoral interval then had three No. 2 FiberWire simple sutures placed superficially to the cephalic vein to reapproximate the interval and provide access to any further surgery if necessary. Remainder to the interval was approximated using 0-Vicryl. The subcutaneous tissue was repaired using 3-0 Vicryl. The skin was closed using 3-0 nylon in a running fashion. Sterile dressings were placed. The patient was now transferred to recovery room in stable condition. Darin PRASAD/[id number]
== END 2018-10-20 16:29 | disposition home or self-care (01) ==
LOC: FASU 05:59
PROVIDERS: ATTEND Orthopaedic Surgery Sports Medicine
PROC: 0PU Upper Bones, Supplement (ICD-10-PCS; 2018-10-20)
PROC: 0RBJ4ZZ Excision of Right Shoulder Joint, Percutaneous Endoscopic Approach (ICD-10-PCS; 2018-10-20)
PROC: 0RQJ0ZZ Repair Right Shoulder Joint, Open Approach (ICD-10-PCS; principal; 2018-10-20 08:32)
DX: M25.311 Other instability, right shoulder (principal); M24.411 Recurrent dislocation, right shoulder
CPT/HCPCS: 36415; 80074; 87389; 94760

== ENCOUNTER 2018-11-18 18:15 | Emergency (ER) | payer OTHER ==
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
[2018-11-18 18:43] VITALS: BP 135/66; PULSE 95; TEMP 97.8; BMI 23.4
[2018-11-18] MEDS ORDERED: KETOROLAC TROMETHAMINE 60 MG/2 ML VIAL ONE (18:57)
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
[2018-11-18] MEDS ORDERED: KETOROLAC TROMETHAMINE 60 MG/2 ML VIAL IM ONE (19:42)
== END 2018-11-18 19:46 | disposition home or self-care (01) ==
LOC: JERFT 18:15
PROC: 3E0233Z Introduction of Anti-inflammatory into Muscle, Percutaneous Approach (ICD-10-PCS; principal; 2018-11-18)
DX: S13.4XXA Sprain of ligaments of cervical spine, initial encounter (principal); V43.61XA Car passenger injured in collision with sport utility vehicle in traffic accident, initial encounter; Y92.414 Local residential or business street as the place of occurrence of the external cause; Y93.89 Activity, other specified; Y99.8 Other external cause status
CPT/HCPCS: 72070-TC-FY; 99281-25